=== PATIENT | male | born 1965 | race Caucasian/White ===

== ENCOUNTER 2023-01-01 19:03 | Emergency (ER) | payer OTHER, SELFPAY ==
[2023-01-01 19:13] VITALS: BP 147/94; PULSE 94; RESP 18; TEMP 37.4; O2SAT 96; BMI 29.4
--- NOTE | 2023-01-01 19:35 | XR_ITS ---
The [address] [address] Patient Name: MARLENY LEAL MRN: [id number] date: 1965 Sex: M Assigned Patient Location: ER Current Patient Location: ER Accession/Order Number: [id number] Exam Date: 01/01/2023 19:40 Report Date: 01/01/2023 21:30 At the request of: CLAIRE ETIENNE Procedure: XR chest 1V ONE-VIEW CHEST RADIOGRAPH, 01/01/2023 7:40 PM EDT COMPARISON: None. CLINICAL HISTORY: pain Findings and impression: 1. Patient is slightly rotated to left accentuating cardiomediastinal silhouette to the left of midline. 2. No acute pulmonary disease. 3. Borderline heart size appears accentuated due to patient rotation. 4. No acute osseous abnormality. Electronically authenticated by: Leo PATEL Date: 01/01/2023 21:30
--- NOTE | 2023-01-01 19:36 | ED_ITS ---
HPI - Abdominal Pain General Stated Complaint: DIFF SWALLOWING Time Seen by Provider: 01/01/23 19:27 Source: patient Mode of arrival: walk-in Limitations: no limitations History of Present Illness HPI narrative: patient presents with discomfort in his chest. Started yesterday evening after eating roast beef. Continues to have constant pressure his chest like something is stuck. Able to swallow his saliva . Has tried drinking H20 but vomits. No dyspnea or radiation of the pain. No cough or fevr Related Data Home Medications Medication Instructions Recorded Confirmed No Known Home Medications 01/01/23 01/01/23 Allergies Allergy/AdvReac Type Severity Reaction Status Date / Time No Known Drug Allergies Allergy Verified 01/01/23 19:11 Review of Systems ROS Status of ROS 10 or more systems reviewed and unremarkable except as noted in history and below [facility] Social History Smoking status: Never smoker Exam Constitutional Vital Signs - 24 hr 01/01/23 19:13 Temperature 99.3 F Pulse Rate [Monitor] 94 H Respiratory Rate 18 Blood Pressure [Left Arm] 147/94 H Pulse Oximetry 96 Oxygen Delivery Method Room Air Common normals: no apparent distress, average body habitus, oriented x3 and healthy appearing HENSD Common normals: normocephalic, head/scalp atraumatic and hearing grossly normal bilaterally Eye Common normals: PERRL, EOMs intact bilaterally and conjunctivae normal Chest Common normals: inspection of chest normal and palpation of chest normal Respiratory Common normals: normal respiratory effort, no use of accessory muscles and clear to auscultation bilaterally Cardio Common normals: regular rate, regular rhythm, S1 normal heart sound and S2 normal heart sound GI Common normals: Normal to inspection, nondistended, normoactive bowel sounds present, soft to palpation and non-tender Extremity Common normals: normal to inspection, full ROM, no calf tenderness and no pedal edema Neuro Common normals: oriented x3 and CN's II-XII intact bilaterally Psych Appearance: grossly normal Course Vital Signs Vital signs: Vital Signs Temperature 99.3 F 01/01/23 19:13 Pulse Rate 94 H 01/01/23 19:13 Respiratory Rate 18 01/01/23 19:13 Blood Pressure 147/94 H 01/01/23 19:13 Pulse Oximetry 96 01/01/23 19:13 Oxygen Delivery Method Room Air 01/01/23 19:13 Temperature 99.3 F 01/01/23 19:13 Pulse Rate 94 H 01/01/23 19:13 Respiratory Rate 18 01/01/23 19:13 Blood Pressure 147/94 H 01/01/23 19:13 Pulse Oximetry 96 01/01/23 19:13 Oxygen Delivery Method Room Air 01/01/23 19:13 MDM - Abdominal Pain MDM Narrative Medical decision making narrative: patient presents with one day history of meat impaction . Ate roast beef yesterday and since then feels like something is stuck. Denies past history of same. Able to swallow his saliva but not able to drink H20 without it coming back up. Treated in the department with Glucagon and Norflex. He was able to pass the bolus and states he now feels better. Discharged home to follow up with his family doctor. His RBS is 128. Advised to discuss this with his doctor as well Lab Data Labs: Lab Results 01/01/23 01/01/23 Range/Units 19:20 19:30 WBC 11.6 H (4.0-11.0) 10^3/uL RBC 5.46 (4.70-6.10) 10^6/uL Hgb 16.7 (14.0-18.0) g/dL Hct 49.0 (42.0-54.0) % MCV 89.7 (80.0-94.0) fL MCH 30.6 (25.9-34.0) pg MCHC 34.1 (29.9-35.2) g/dL RDW 13.6 (11.0-15.0) % Plt Count 441 (150-450) 10^3/uL MPV 9.0 L (9.5-13.5) fL Neut % (Auto) 67.5 (43.0-75.0) % Lymph % (Auto) 21.0 (20.5-60.0) % [place] % (Auto) 9.6 (1.7-12.0) % Eos % (Auto) 1.0 (0.9-7.0) % Baso % (Auto) 0.5 (0.2-2.0) % Neut # (Auto) 7.8 H (1.4-6.5) 10^3/uL Lymph # (Auto) 2.4 (1.2-3.8) 10^3/uL [place] # (Auto) 1.1 H (0.3-0.8) 10^3/uL Eos # (Auto) 0.1 (0.0-0.7) 10^3/uL Baso # (Auto) 0.1 (0.0-0.1) 10^3/uL Abs Immat Gran (auto) 0.05 H (0.00-0.03) 10^3/uL Imm/Tot Granulo (auto) 0.4 (0.0-0.5) % Sodium 141 (136-145) mmol/L Potassium 3.9 (3.5-5.1) mmol/L Chloride 104 (98-107) mmol/L Carbon Dioxide 24.8 (21.0-32.0) mmol/L Anion Gap 16.1 BUN 14.0 (7.0-18.0) mg/dL Creatinine 1.19 (0.70-1.30) mg/dL Est GFR ( Amer) >60 (>=60) Est GFR (Non-Af Amer) >60 (>=60) BUN/Creatinine Ratio 11.8 Glucose 128 H (74-106) mg/dL Calcium 9.4 (8.5-10.1) mg/dL Total Bilirubin 0.6 (0.2-1.0) mg/dL AST 15 (15-37) U/L ALT 17 (16-63) U/L Alkaline Phosphatase 61 (46-116) U/L Total Protein 8.6 H (6.4-8.2) g/dL Albumin 3.8 (3.4-5.0) g/dL Globulin 4.8 g/dL Albumin/Globulin Ratio 0.8 Discharge Plan Discharge Clinical Impression: Esophageal foreign body Patient Disposition: Home, Self-Care Condition: Good Prescriptions / Home Meds: No Action No Known Home Medications Instructions: Esophageal Foreign Body (ED) Additional Instructions: follow up with family doctor Dr Blake Stand Alone Forms: Portal Instructions Referrals: Physician,Non-Staff, [Primary Care Provider] - 1 week
[2023-01-01 19:43] LABS: Basophils Absolute Auto 0.1 10^3/uL (0.0-0.1); Basophils Percent Auto 0.5 % (0.2-2.0); Eosinophils Absolute Auto 0.1 10^3/uL (0.0-0.7); Hemoglobin 16.7 g/dL (14.0-18.0); Immature Granulocytes Abs Auto 0.05 10^3/uL (0.00-0.03); Immature Granulocytes Pct Auto 0.4 % (0.0-0.5); Lymphocytes Absolute Auto 2.4 10^3/uL (1.2-3.8); Mean Corpuscular HGB Conc 34.1 g/dL (29.9-35.2); Mean Corpuscular Hemoglobin 30.6 pg (25.9-34.0); Mean Corpuscular Volume 89.7 fL (80.0-94.0); Monocytes Absolute Auto 1.1 10^3/uL (0.3-0.8); Monocytes Percent Auto 9.6 % (1.7-12.0); Neutrophils Absolute Auto 7.8 10^3/uL (1.4-6.5); Neutrophils Percent Auto 67.5 % (43.0-75.0); Platelet Count 441 10^3/uL (150-450); Red Blood Count 5.46 10^6/uL (4.70-6.10); Red Cell Distribution Width 13.6 % (11.0-15.0); White Blood Count 11.6 10^3/uL (4.0-11.0)
--- NOTE | 2023-01-01 19:46 | PC.NURSE ---
Pt believes he has a food bolus stuck in his esophagus.
[2023-01-01] MEDS: 0.9 % SODIUM CHLORIDE 1,000 ML 999 ML IV (19:52)
[2023-01-01] MEDS: GLUCAGON 1 MG/ML VIAL IV ×2 (19:53→21:27)
[2023-01-01] MEDS: ORPHENADRINE 60 MG/ 2 ML VIAL IV (19:53)
[2023-01-01 19:55] LABS: Alanine Aminotransferase 17 U/L (16-63); Albumin Globulin Ratio 0.8; Albumin Level 3.8 g/dL (3.4-5.0); Alkaline Phosphatase 61 U/L (46-116); Anion Gap 16.1; Aspartate Amino Transferase 15 U/L (15-37); BUN Creatinine Ratio 11.8; Bilirubin Total 0.6 mg/dL (0.2-1.0); Calcium 9.4 mg/dL (8.5-10.1); Carbon Dioxide 24.8 mmol/L (21.0-32.0); Chloride 104 mmol/L (98-107); Estimated GFR (African America >60 (>=60); Estimated GFR (Non-African Ame >60 (>=60); Globulin 4.8 g/dL; Glucose 128 mg/dL (74-106); Potassium 3.9 mmol/L (3.5-5.1); Sodium 141 mmol/L (136-145); Total Protein 8.6 g/dL (6.4-8.2)
== END 2023-01-01 22:34 | disposition home or self-care (01) ==
PROVIDERS: Emergency Provider Internal Medicine
DX: T18.128A Food in esophagus causing other injury, initial encounter (principal)
CPT/HCPCS: 36415; 71045; 80053; 85025; 96374; 96375; 96376; 99284; J1610